=== PATIENT | male | born 1955 | race Caucasian/White ===

== ENCOUNTER 2021-12-11 12:41 | Day surgery (SDC) | payer OTHER ==
[~2021-12-11] VITALS: Ht 180.3 cm; Wt 96.0 kg
[2021-12-11] MEDS ORDERED: ERGO400 (12:57)
== END 2021-12-11 15:32 | disposition home or self-care (01) ==
LOC: ORSCSDS 12:41
PROVIDERS: Internal Medicine Gastroenterology
PROC: 0DBH8ZX Excision of Cecum, Via Natural or Artificial Opening Endoscopic, Diagnostic (ICD-10-PCS; principal; 2021-12-11 14:00)
PROC: 0DBN8ZX Excision of Sigmoid Colon, Via Natural or Artificial Opening Endoscopic, Diagnostic (ICD-10-PCS; principal; 2021-12-11 14:00)
PROC: 0DBM8ZX Excision of Descending Colon, Via Natural or Artificial Opening Endoscopic, Diagnostic (ICD-10-PCS; principal; 2021-12-11 14:00)
PROC: 0DBP8ZX Excision of Rectum, Via Natural or Artificial Opening Endoscopic, Diagnostic (ICD-10-PCS; principal; 2021-12-11 14:00)
DX: Z12.11 Encounter for screening for malignant neoplasm of colon (principal); Z86.010 Personal history of colon polyps; D12.0 Benign neoplasm of cecum; D12.4 Benign neoplasm of descending colon; D12.5 Benign neoplasm of sigmoid colon; K62.1 Rectal polyp; K57.30 Diverticulosis of large intestine without perforation or abscess without bleeding; E66.9 Obesity, unspecified; Z68.30 Body mass index [BMI] 30.0-30.9, adult
CPT/HCPCS: 88305; J0330; J0461; J2405; J2704; J7120

== ENCOUNTER → 2023-03-17 | Outpatient (CLI) | payer OTHER ==
[~2023-03-17] MED LIST: ERGO400
[2023-03-17 16:06] LABS: Cholesterol 281 mg/dL (50-200); LDL/HDL RATIO 2.3; Triglycerides 106 mg/dL (30-160); Very Low Density Lipoprot Chol 21 mg/dL (6-32)
[2023-03-17 16:07] LABS: Alanine Aminotransfer (ALT/SGP 27 U/L (12-78); CHOL/HDL RATIO 3.6; HDL Cholesterol 79 mg/dL (>39); Low Density Lipoprotein Chol 181 mg/dL (0-110)
== END ==
LOC: LAB SHORT 09:44 → LAB 09:44
PROVIDERS: Family Medicine
DX: E78.2 Mixed hyperlipidemia (principal)
CPT/HCPCS: 36415; 80061; 84460